=== PATIENT | male | born 1940 | race Caucasian/White ===

== ENCOUNTER 2018-07-11 07:44 | Emergency (ER) | payer MEDICARE, OTHER ==
[~2018-07-11 07:44] MED LIST: ALPR-698 PO; ASC500 PO; ASCO-201 PO; BO30S PR; CALC-670 PO; CALC-756 PO; CEP500 PO; DIA5 PO; DOC100 PO; FAM20 PO; GLUC-198 PO; IBU200 PO; IBU600 PO; IBUP-1455 PO; IRO150 PO; KET10 PO; LEV500 PO; LOR10/325 PO; LOR5 PO; LOR7.5/325 PO; MELO-150 PO; MULT-1335 PO; MULT-898 PO; PER PO; TIMO5TAB PO; TOLT4CAP13 PO; ZINC30TA5 PO; ZINC50TA2 PO; ZINC50TA43 PO; [UNRECOGNIZED DRUG - CODE] UR
--- NOTE | 2018-07-11 07:56 | ER Report ---
History and Physical Time Seen By MD: 07:57 HPI/ROS Left sided, left lateral pain at the mid upper iliac crest and S I joint region of his back for the past 3-4 days. Worse with sitting, and improved with activity and ambulation. No falls or other trauma. No midline pain. No fever or chills, no weight loss, no bowel or bladder changes. No abdominal pain. No dysuria or hematuria. Pain radiates down the left lateral aspect of his left leg. Remainder of the 14 system rev: Yes Allergies: Coded Allergies: No Known Drug Allergies (Unverified , 09/28/16) Home Meds Active Scripts Ketorolac Tromethamine (KETOROLAC TROMETHAMINE) 10 Mg Tab, 10 MG PO Q6H PRN for PAIN for 5 Days, #15 TAB 0 Refills Prov:MARGARET CARLSON MD 07/11/18 Reported Medications Timolol Maleate (Timolol Maleate) 5 Mg Tablet, 5 MG PO BID 10/09/11 Zinc Gluconate (Zinc) 50 Mg Tablet, 50 MG PO DAILY 10/09/11 Ibuprofen (Motrin) 600 Mg Tab, 800 MG PO BID, #20 10/09/11 Famotidine (Pepcid) 20 Mg Tab, 20 MG PO BID, 0 Refills 02/14/11 Multivitamins W-Iron (Multivitamin W-Iron) 1 Tab Tablet, 1 TAB PO BIDBS, 0 Refills 02/14/11 Glucosa Vázquez 2KCL/Chondroitin Vázquez (Glucosamine & Chondroitin Cap) 1 Cap Capsule, 1 CAP PO DAILY, 0 Refills 02/14/11 Calcium Citrate/Ergocalciferol (Calcium Citrate W/Vitamin D) 1 Tab Tablet, 1 TAB PO, 0 Refills 02/14/11 Ascorbic Acid (Vitamin C) 500 Mg Tab, 500 MG PO BID, 0 Refills 02/14/11 Reviewed Nurses Notes: Yes Old Medical Records Reviewed: Yes Hx Smoking: No Smoking Status: Never Smoker Exposure to Second Hand Smoke?: No Constitutional Vital Sign - Last 24 Hours 07/11/18 07:55 Pulse 85 Resp 18 B/P (MAP) 149/88 Pulse Ox 94 O2 Delivery Room Air Physical Exam General Appearance: The patient is alert, has no immediate need for airway protection and no current signs of toxicity. Eyes: Pupils equal and round no injection. Respiratory: Chest is non tender, lungs are clear to auscultation. Cardiac: regular rate and rhythm Gastrointestinal: Abdomen is soft and non tender, no masses, bowel sounds normal. Musculoskeletal: TTP of left sciatic region. Neck: Neck is supple and non tender. Extremities have full range of motion and are non tender. Skin: No rashes or lesions. Neuro: grossly normal strength and sensation DIFFERENTIAL DIAGNOSIS: After history and physical exam differential diagnosis was considered for back pain including but not limited to muscular pain, herniated disc, spine fracture, intra-abdominal causes and urinary tract infection. Medical Decision Making ED Course/Re-evaluation ED Course Uncomplicated left sided sciatica. Given Decadron and Valium in the emergency department. Given an injection of lidocaine and bupivacaine at the trigger point. The patient feels improved and has improved ambulation. I encouraged him to perform stretching exercises and use the heating pad as needed. He will follow-up with his primary care physician. Decision to Disposition Date: Jul 11, 2018 Decision to Disposition Time: 10:47 Depart Departure Latest Vital Signs Vital Signs Date Time Temp Pulse Resp B/P (MAP) Pulse Ox O2 Delivery O2 Flow Rate FiO2 07/11/18 07:55 85 18 149/88 94 Room Air Impression: Primary Impression: Sciatica Condition: Improved Disposition: HOME OR SELF-CARE Referrals: СЕРГЕЙ WANG MD (PCP) New Scripts Ketorolac Tromethamine (KETOROLAC TROMETHAMINE) 10 Mg Tab 10 MG PO Q6H PRN for PAIN for 5 Days, #15 TAB 0 Refills Prov: MARGARET CARLSON MD 07/11/18 Patient Instructions: Sciatica (ED) Problem Qualifiers Primary Impression: Sciatica Laterality: left Qualified Codes: M54.32 - Sciatica, left side MARGARET CARLSON MD Jul 11, 2018 07:56
[2018-07-11] MEDS ORDERED: DIAZEPAM 2 MG TAB PO ONE (08:10)
[2018-07-11] MEDS ORDERED: DEXAMETHASONE SOD PHOS 10MG/ML IM ONE (08:10)
[2018-07-11 09:30] VITALS: BP 105/78
[2018-07-11] MEDS ORDERED: APAP/HYDROCODONE 325/5 TAB PO ONE (09:30)
[2018-07-11] MEDS ORDERED: KET10 PO (10:48)
== END 2018-07-11 10:56 | disposition home or self-care (01) ==
LOC: ER 08:20
DX: M54.32 Sciatica, left side (principal)
CPT/HCPCS: 96372; 99283; A9270; J1100

== ENCOUNTER → 2018-07-14 | Outpatient (CLI) | payer MEDICARE, OTHER ==
--- NOTE | 2018-07-14 17:32 | RADIOLOGY IMAGING REPORT ---
FACILITY: [facility] PATIENT NAME: Gustavo Easley : 1940 MR: [id number] V: [id number] EXAM DATE: ORDERING PHYSICIAN: JAMES PEREZ TECHNOLOGIST: Location: [facility] - [place] Patient: Gustavo Easley : 1940 Visit/Account:[id number] Date of Sevice: 07/14/2018 Exam type: LUMBAR SPINE 2 OR 3 VIEW History: Low back pain with sciatica on left side x3 days Comparison: None. Findings: AP and lateral views of the thoracic spine demonstrate a significant levoconvex scoliosis of the lumb ar spine with the curvature centered about L1 to. There is extensive disc space narrowing and margin al osteophytes throughout the lumbar spine and visualized lower thoracic spine. Is a 3 mm anterior l isthesis of L4 with respect L5 presumably on a degenerative basis. There is mild loss of height of t he L2, L1, T12, T11 vertebral bodies likely chronic given the marginal osteophytes. IMPRESSION: 1. Significant scoliosis lumbar spine with extensive multilevel spondylotic changes Report Dictated By: Bella Ward MD at 07/14/2018 5:26 PM Report E-Signed By: Bella Ward MD at 07/14/2018 5:28 PM WSN:[id number]
== END ==
LOC: RAD 14:27
PROVIDERS: ATTEND Family Medicine
DX: M54.42 Lumbago with sciatica, left side (principal); M41.86 Other forms of scoliosis, lumbar region
CPT/HCPCS: 72100